=== PATIENT | male | born 1980 | race Caucasian/White ===

== ENCOUNTER 2022-07-25 12:39 | Emergency (ER) | payer SELFPAY ==
[2022-07-25 12:58] VITALS: BP 219/149; PULSE 73; RESP 18; TEMP 36.7; O2SAT 96; BMI 38.0
--- NOTE | 2022-07-25 13:30 | ED_ITS ---
HPI - Dental/Oral General: Chief complaint: Dental/Oral Stated complaint: Tooth abscess Time Seen by Provider: 07/25/22 13:08 Source: patient Mode of arrival: ambulatory History of Present Illness: 42-year-old male who presents to the emergency room with complaints of tooth pain and swelling. The first 2 premolars on the left mandible. He states he had an abscess in that area it opened and drained he is taking small amoxicillin from a previous prescription and ibuprofen reports worsening pain. He has not seen a dentist. Teeth map: 1. Onset (ago): day(s) Associated symptoms: Reports gum swelling; Denies ear or mastoid pain, fever(s), odynophagia, sore throat or tongue swelling Treatment prior to arrival: other (Oral antibiotics) Review of Systems Const: Denies: fever(s), chills, fatigue or malaise ENMT: Denies: throat pain, odynophagia or ear or mastoid pain Card: Denies: chest pain or dyspnea on exertion Resp: Denies: dyspnea, productive cough or non-productive cough GI: Denies: abdominal pain, nausea or vomiting All/Imm: Denies: tongue swelling Physical Exam Const: COMMON NORMALS: no acute distress GENERAL APPEARANCE: cooperative and comfortable ORIENTATION/CONSCIOUSNESS: Yes awake, Yes oriented to person, Yes oriented to place and Yes oriented to time HENMT: COMMON NORMALS: normocephalic, atraumatic and hearing grossly normal bilaterally HEAD & SCALP: normocephalic and atraumatic TEETH & GINGIVA IMAGES: 1. OTHER: Mild swelling in the area of 21st 22nd 23rd teeth left premolar teeth. No identifiable abscess. Eye: COMMON NORMALS: Equal, round and reactive pupils present, EOMs intact bilaterally and conjunctivae normal CONJUNCTIVA: Yes conjunctivae normal PUPIL: Yes Equal, round and reactive pupils present Resp: COMMON NORMALS: normal respiratory effort, No retractions, No use of accessory muscles and clear to auscultation bilaterally AUSCULTATION: clear to auscultation bilaterally Cardio: COMMON NORMALS: regular rate, regular rhythm and No murmurs present (Cardio) RATE: regular rate RHYTHM: regular rhythm GI: COMMON NORMALS: Soft to palpation and No hepatosplenomegaly present AUSCULTATION: Yes normoactive bowel sounds PALPATION: Yes Soft to palpation, No Tenderness to palpation present (GI), No Guarding due to palpation present (GI) and Yes No hepatosplenomegaly present Extremity: COMMON NORMALS: normal to inspection, capillary refill normal, no clubbing, cyanosis or edema, no calf tenderness and no pedal edema Neuro: SENSORIUM/ORIENTATION: Yes oriented to person, Yes oriented to place and Yes oriented to time Skin: COMMON NORMALS: no rashes or lesions noted GENERAL SKIN EXAM: no rashes or lesions noted Course Vital Signs: Vital signs: Vital Signs Temperature 98.0 F 07/25/22 12:58 Pulse Rate 73 07/25/22 12:58 Respiratory Rate 18 07/25/22 12:58 Blood Pressure 219/149 07/25/22 12:58 Pulse Oximetry 96 07/25/22 12:58 Oxygen Delivery Me thod Room Air 07/25/22 12:58 MDM - Dental/Oral Medical Decision Making IsRecommend switching to Augmentin 875 twice daily can use diclofenac as needed ice pursue dental consultation as soon as possible for definitive care. Discharge Plan Discharge Patient Disposition: Home Clinical Impression: Dental caries Condition: Stable Prescriptions: New amoxicillin-pot clavulanate 875-125 mg tablet 1 tab PO BID Qty: 14 0RF diclofenac sodium 75 mg tablet,delayed release (DR/EC) 75 mg PO Q12H PRN (Reason: pain) Qty: 20 0RF Discharge Orders: Discharge ED (Routine); Ordered 07/25/22 Ordered By: Jay Goldstein Referrals: Ann Pacheco FNP [Primary Care Provider] - Discharge Diet: Soft Mechanical Discharge Activity: Increase activity as tolerated Patient Instructions: Opioid Safety, Pain Management Activity Restrictions/Additional Instructions: You are seen today for dental infection. There is no identifiable abscess at the time of examination you reported already drained. We recommend that you s tart on the amoxicillin clavulanic acid 1 pill twice daily can use diclofenac as needed ice to the area for comfort. Strongly recommend you follow-up with a dentist as soon as you are able for definitive care. Coding Level of Care Code ED Resident Care Technician for Arin Tanner
[2022-07-25 13:46] VITALS: BP 182/119; PULSE 77; RESP 16; O2SAT 99
== END 2022-07-25 13:47 | disposition home or self-care (01) ==
PROVIDERS: Emergency Provider Family Medicine; PCP Nurse Practitioner
DX: K02.9 Dental caries, unspecified (principal)
CPT/HCPCS: 99283